=== PATIENT | male | born 1970 | race Caucasian/White ===

== ENCOUNTER → 2018-04-18 16:00 | Outpatient (CLI) | payer BC, SELFPAY ==
[2018-04-18 16:56] LABS: HCT 43.7 % (40.0-50.0); Mean Corp. HGB Concentration 34.3 g/dL (32.0-36.0); Mean Corpuscular Volume 84.5 fL (80-95); Mean Platelet Volume 10.8 fL (8.0-11.0); Platelet Count 239 x1000/uL (130-400); RBC 5.17 m/cumm (4.50-6.00); RBC Distribution Width 13.4 % (11.8-14.1); White Blood Cell Count 5.75 k/cumm (4.4-10.8)
[2018-04-18 17:58] LABS: TSH 1.23 uIU/mL (0.358-3.74)
[2018-04-22 13:53] LABS: Lyme Ab w Rflx to Lyme Confirm Negative
== END ==
PROVIDERS: PCP Family Medicine; Visit Provider Family Medicine
DX: R53.82 Chronic fatigue, unspecified (principal); W57.XXXA Bitten or stung by nonvenomous insect and other nonvenomous arthropods, initial encounter
CPT/HCPCS: 36415; 85027; 84443; 86618

== ENCOUNTER 2018-11-18 00:09 | Outpatient (CLI) | payer BC, SELFPAY ==
--- NOTE | 2018-11-18 05:47 | MERGEMPI_ITS ---
*[facility]* [address] [place] [address] Myocardial Perfusion Imaging - SPECT Raj protocol Date of study: 11/18/2018 *PATIENT PRESENTATION* Height: 185.4cm (73in) Blood Pressure: Weight: 104.5kg (230lb) BSA: 2.34m^2 Referring physician: Lucas Manriquez MD Ordering physician: Maurizio York Impressions: Normal perfusion by Tc99m Sestamibi Imaging. Summary: 1. Myocardial perfusion imaging: No myocardial perfusion defects noted. 2. The calculated left ventricular ejection fraction after stress: 51%. 3. Stress: The target heart rate was achieved. Indication: R07.9. History: Patient's presenting symptoms: . REASON FOR VISIT: PATIENT HAS BEEN FEELING ANXIOUS AND HAVING 2/10, DULL, LEFT SIDED CHEST PAIN FOR ABOUT SIX MONTHS. CHEST PAIN IS FAIRLY CONSTANT. PATIENT REPORTS NO PAIN WHEN GOING TO BED FOR THE NIGHT AND UPON WAKING, BUT PAIN RETURNS HIS DAY GETS GOING. PAST MEDICAL HISTORY: HYPERTENSION. GERD. FAMILY HISTORY: GRANDFATHER (DIABETES, HEART DISEASE, STROKE). SMOKING STATUS: NONE. EXERCISE ROUTINE: NONE. Risk factors: Family history of coronary artery disease. Hypertension. Cholesterol: 169mg/dl. HDL: 43mg/dl. LDL: 116mg/dl. Triglycerides: 42mg/dl. ALLERGIES: SULFONAMIDE ANTIBIOTICS, LACTOSE, ACETAMINOPHEN, OXYCODONE HCL, PROPOXYPHENE. MEDICATIONS: AMLODIPINE 10MG, DAILY. LISINOPRIL 30MG, DAILY. RANITIDINE HCL 75MG, DAILY. SERTRALINE 150MG, DAILY. Imaging Technique: Protocol: Raj protocol. Acquisition: Gated SPECT; 1 day - rest/stress. The patient was imaged in the supine position. Attenuation correction used. Isotope administration: - Rest. Tc[99m]-sestamibi. Dose: 12.1mCi. Injection time: 08:55 AM. Injection to stress time: 00:45. - Stress. Tc[99m]-sestamibi. Dose: 36.1mCi. Injection time: 11:00 AM. 1-2 min before end of exercise Stress protocol: + +---+ + !Stage !HR !BP (mmHg) ! + +---+ + !Baseline supine !58 !130/90 (103) ! + +---+ + !Baseline standing !55 !142/100 (114)! + +---+ + !Stage I; 1.7mph, 10degrees; 3 min !82 !140/90 (107) ! + +---+ + !Stage II; 2.5mph, 12degrees; 3 min !100!160/90 (113) ! + +---+ + !Stage III; 3.4mph, 14degrees; 3 min!120!180/98 (125) ! + +---+ + !Stage IV; 4.2mph, 16degrees; 3 min !156!220/100 (140)! + +---+ + !Recovery; 1 min !140!240/98 (145) ! + +---+ + !Recovery; 3 min !78 !160/84 (109) ! + +---+ + !Recovery; 6 min !81 !144/88 (107) ! + +---+ + * Stress results: Maximal heart rate during stress was 167bpm (96% of maximal predicted heart rate). The maximal predicted heart rate was 174bpm. The target heart rate was achieved. The rate-pressure product for the peak heart rate and blood pressure was 58014dn Hg/min. Stress ECG: TREADMILL PORTION OF MPI STRESS TEST ENDED IN 13MIN 6SEC DUE TO PATIENT FATIGUE. APPROPRIATE HEART RATE AND BLOOD PRESSURE RESPONSE TO EXERCISE. MAXIMAL HEART RATE ACHIEVED 167 BPM, 95% OF TARGET. APPROXIMATE METS ACHIEVED 14.23. PAC NOTED IN RECOVERY PERIOD. NO ANGINA. PATIENT REPORTS THAT CHEST PAIN STOPS DURING EXERICSE. NO SIGNIFICANT ST SEGMENT CHANGES. ABOVE AVERAGE FUNCTIONAL CAPACITY. Myocardial perfusion: Imaging information: gated. No myocardial perfusion defects noted. Ventricular Function (Wall Motion): The calculated left ventricular ejection fraction after stress: 51%. Study data: Lucas Manriquez MD supervised and was readily available during the procedure. This study was interpreted by [facility]. Study status: Routine. Consent: The risks, benefits, and alternatives to the procedure were explained to the patient and informed consent was obtained. Procedure: Initial setup. A baseline ECG was recorded. Surface ECG leads and manual cuff blood pressure measurements were monitored. Heart sounds: Normal. Lung sounds: Normal. Treadmill exercise testing was performed using the Raj protocol. Study completion: All catheters inserted during the procedure were removed. The patient tolerated the procedure well and was discharged from the lab. Discharge: The patient left the laboratory in stable condition. Birthdate: Patient birthdate: 1970. Sex: Gender: male. Study date: Study date: 11/18/2018. Study time: 00:01 AM. Electronically signed by Lucas Manriquez MD 11/18/2018 16:50
== END 2018-11-18 00:29 ==
PROVIDERS: PCP Family Medicine; Visit Provider Family Medicine
DX: R07.89 Other chest pain (principal); I10 Essential (primary) hypertension; K21.9 Gastro-esophageal reflux disease without esophagitis; F41.9 Anxiety disorder, unspecified; Z82.49 Family history of ischemic heart disease and other diseases of the circulatory system
CPT/HCPCS: 78452; 93017

== ENCOUNTER 2019-05-07 06:14 | Emergency (ER) | payer BC, SELFPAY ==
[2019-05-07 06:17] VITALS: BP 171/96; PULSE 81; RESP 18; TEMP 36.1; O2SAT 100
--- NOTE | 2019-05-07 06:30 | ED.GENADUL_ITS ---
Discharge Plan Disposition Patient Disposition: HOME Condition: Stable Discharge Details Chief Complaint: Nk/Back Pain Clinical Impression: Pain of left sacroiliac joint Primary Care Provider: Maurizio York ED Provider: Nic Balderas Home Meds and New Rx's Prescriptions: New methocarbamol 500 mg tablet 500 - 1,000 mg PO Q6H PRN (Reason: Back pain or spasm) Qty: 20 RF: 0 prednisone 20 mg tablet 40 mg PO DAILY 5 Days Qty: 10 RF: 0 hydromorphone [Dilaudid] 2 mg tablet 2 mg PO Q6H PRN (Reason: pain) Qty: 5 RF: 0 Continued amlodipine 10 mg tablet 10 mg PO DAILY Qty: 90 RF: 4 acetaminophen [Tylenol Extra Strength] 500 MG tablet 1 tab PO PRN RF: 0 ranitidine HCl [Zantac 75] 75 MG tablet 75 mg PO DAILY 90 Days Qty: 90 RF: 3 ibuprofen 800 mg tablet 800 mg PO TID PRN (Reason: pain) Qty: 30 RF: 3 lisinopril 30 mg tablet 30 mg PO DAILY Qty: 90 RF: 4 Discharge Instructions Instructions: Leg Pain (ED) Additional Instructions: Home to rest today. Small, frequent sips of fluids so that she maintain hydration. May perform gentle hip flexion and rotation stretching exercises as we discussed. Remove Lidoderm patch in 12 hours time, may repeat with [id number] Lidoderm patches 12 hours on 12 hours off. Take medications as prescribed. Return if develop increasing pain, weakness or numbness of the lower extremity, change to ability to urinate, or any other acute concerns. Please follow-up with Dr. York in the next 5 to 7 days for recheck. Stand Alone Forms: Work Release Medical Decision Making 48-year-old male presents from home with 2 days of left low back pain that began with a twisting motion while getting out of his truck. He did not suffer any other injury. He does not have a rash or tenderness at the sciatic notch. His motor and sensory testing is within normal limits. He has known hypertension and slightly hypertensive today. Consistent with SI joint strain, paraspinous muscular strain, cannot exclude slight disc bulge although it would be sacral. Lidoderm patch placed, will place him on a burst of prednisone for its anti- inflammatory properties, will add methocarbamol for muscle relaxation and discussed with him consent for use of the small number of narcotic analgesics. He is stable for outpatient management at this time and understands follow-up and return precautions. HPI General Mode of arrival: ambulatory . Date/Time Provider Initiated Documentation: 05/07/19 06:15 . Limitations to Documentation: no limitations . Information obtained by: patient . History of Present Illness 48 year old M presents to the emergency department with the chief complaint of Left low back pain for 2 days, described as moderate and severe, Quality is described as dull and constant, and is localized to the back and left. Patient reports no radiation. Patient started experiencing this day(s) and it has been intermittent. Rest improves symptom(s), Movement worsens symptoms . Patient notes no other symptoms. and other (No change to urine. No numbness or tingling.); denies weakness. Patient did receive the following treatments prior to arrival, NSAID Related Data Home Medications Medication Instructions Recorded Confirmed acetaminophen [Tylenol Extra 1 tab PO PRN 12/12/12 05/07/19 Strength] ranitidine HCl [Zantac 75] 75 mg PO DAILY 90 Days #90 tab-cap 12/12/17 05/07/19 ibuprofen 800 mg tablet 800 mg PO TID PRN #30 tab-cap 08/02/18 05/07/19 amlodipine 10 mg tablet 10 mg PO DAILY #90 tab 09/24/18 05/07/19 lisinopril 30 mg tablet 30 mg PO DAILY #90 tab 11/11/18 05/07/19 hydromorphone [Dilaudid] 2 mg PO Q6H PRN #5 tab 05/07/19 methocarbamol 500 - 1,000 mg PO Q6H PRN #20 tab 05/07/19 prednisone 40 mg PO DAILY 5 Days #10 tab 05/07/19 Previous Rx's Medication Instructions Recorded ranitidine HCl [Zantac 75] 75 mg PO DAILY 90 Days #90 tab-cap 12/12/17 ibuprofen 800 mg tablet 800 mg PO TID PRN #30 tab-cap 08/02/18 amlodipine 10 mg tablet 10 mg PO DAILY #90 tab 09/24/18 lisinopril 30 mg tablet 30 mg PO DAILY #90 tab 11/11/18 hydromorphone [Dilaudid] 2 mg PO Q6H PRN #5 tab 05/07/19 methocarbamol 500 - 1,000 mg PO Q6H PRN #20 tab 05/07/19 prednisone 40 mg PO DAILY 5 Days #10 tab 05/07/19 Allergies Allergy/AdvReac Type Severity Reaction Status Date / Time Sulfa (Sulfonamide Allergy Unknown Verified 05/07/19 06:19 Antibiotics) lactose AdvReac Severe DIARRHEA Verified 05/07/19 06:19 acetaminophen [From Percocet] AdvReac Intermediate ITCHY Verified 05/07/19 06:19 oxycodone HCl [From Percocet] AdvReac Intermediate ITCHY Verified 05/07/19 06:19 propoxyphene AdvReac Intermediate ITCHY Verified 05/07/19 06:19 General Stated Complaint: Nk/Back Pain NICHOLAS: 3 Review of Systems Review of Systems No numbness or tingling, no change to urine, no fall or injury. No rash. 6 systems reviewed and otherwise negative. [facility] Family History Mother Heart disease Father No problems noted. Sister No problems noted. Grandfather Diabetes Heart disease Stroke Son No problems noted. Daughter No problems noted. Daughter No problems noted. Daughter No problems noted. Social History Smoking/Tobacco Use Status: Never Alcohol Intake: current Alcohol Intake frequency: a few times a month Drug use: Rarely Substance use type: marijuana current occupation: [employer] Pets and animals: Yes Pets and animals: dog(s) Frequency: 5-6 times per week Special jose needs: No Do you feel safe at home: Yes Exam Narrative Exam Narrative: GEN: awake, alert, oriented 3. Pleasant, well groomed, interactive. HEAD: Normocephalic, atraumatic ENT: Mucous membranes moist, oropharynx unremarkable, External ear exam unremarkable EYES: PERRL, EOMI NECK: Full ROM, no ADDY, no menigismus CHEST/RESP: Nontender, clear to auscultation bilateral, no wheeze/rhonchi/rales CARDIOVASCULAR: RRR, no murmur, rub salvador. 2+ Rad pulse bilateral ABDOMEN: Soft, nontender, no mass. +Bowel sounds Back: Left SI joint/paraspinous sacral tenderness to palpation. no midline step- off, tenderness or deformity. EXT: Full ROM, no edema, no rash. 2+ patellar reflex bilaterally. Normal sensation throughout including saddle distribution. 5 out of 5 strength in bilateral lower extremity. Neuro: Grossly normal neurologic exam, conversant, interactive. Psych: Speech fluent, thoughts congruent, affect normal Course Vital Signs Temperature 36.1 C L 05/07/19 06:17 Pulse 81 05/07/19 06:17 Respiratory Rate 18 05/07/19 06:17 Blood Pressure 171/96 H 05/07/19 06:17 Pulse Oximetry 100 05/07/19 06:17 Temperature 36.1 C L 05/07/19 06:17 Temperature Source Skin 05/07/19 06:17 Pulse 81 05/07/19 06:17 Respiratory Rate 18 05/07/19 06:17 Respiratory Effort 05/07/19 06:20 Blood Pressure 171/96 H 05/07/19 06:17 Blood Pressure Position Standing 05/07/19 06:17 Pulse Oximetry 100 05/07/19 06:17 Oxygen Delivery Method Room Air 05/07/19 06:17 Oxygen Flow Rate 0 05/07/19 06:17 Pain Level 10 05/07/19 06:17
[2019-05-07] MEDS: predniSONE 40 MG, predniSONE 10 MG 50 MG PO (06:38)
== END 2019-05-07 06:43 | disposition home or self-care (01) ==
PROVIDERS: Emergency Provider Emergency Medicine; PCP Family Medicine
DX: M54.32 Sciatica, left side (principal); I10 Essential (primary) hypertension
CPT/HCPCS: 99283; J7512

== ENCOUNTER 2020-01-16 04:06 | Outpatient (CLI) | payer BC, SELFPAY ==
[2020-01-16 08:48] LABS: Anion Gap 6.8 mmol/L (3-11); BUN 21 mg/dL (7-18); CO2 30.2 mmol/L (21.0-32.0); CREATININE 0.94 mg/dL (0.70-1.30); Calcium 9.1 mg/dL (8.5-10.1); Calculated LDL 180 mg/dL (<100); Chloride 104 mmol/L (98-107); Cholesterol 240 mg/dL (<200); Glucose 96 mg/dL (74-106); HDL Cholesterol 47 mg/dL (40-60); Potassium 4.1 mmol/L (3.5-5.1); Sodium 141 mmol/L (136-145); Triglyceride 67 mg/dL (<150)
== END 2020-01-16 04:26 ==
PROVIDERS: PCP Family Medicine; Visit Provider Family Medicine
DX: Z00.00 Encounter for general adult medical examination without abnormal findings (principal); Z13.220 Encounter for screening for lipoid disorders; Z13.228 Encounter for screening for other metabolic disorders
CPT/HCPCS: 36415; 80048; 80061

== ENCOUNTER 2021-03-25 01:32 | Outpatient (CLI) | payer BC, SELFPAY ==
[2021-03-25 12:37] LABS: Hemoglobin A1C 5.7 % (<5.7)
[2021-03-25 12:40] LABS: ALT 20 U/L (16-63); AST 19 U/L (15-37); Albumin 4.2 g/dL (3.4-5.0); Alkaline Phosphatase 68 U/L (46-116); Anion Gap 8.4 mmol/L (3-11); BUN 19 mg/dL (7-18); Bilirubin, Total 0.5 mg/dL (0.2-1.0); CO2 29.6 mmol/L (21.0-32.0); CREATININE 0.9 mg/dL (0.70-1.30); Calcium 9.4 mg/dL (8.5-10.1); Calculated LDL 165 mg/dL (<100); Chloride 106 mmol/L (98-107); Cholesterol 227 mg/dL (<200); Glucose 90 mg/dL (74-106); HDL Cholesterol 50 mg/dL (40-60); Potassium 4.2 mmol/L (3.5-5.1); Sodium 144 mmol/L (136-145); Triglyceride 60 mg/dL (<150)
[2021-03-25 18:33] LABS: PSA, Screening 0.5 ng/mL (0.0-2.5)
== END 2021-03-25 01:33 | disposition home or self-care (01) ==
LOC: LOS 01:32
PROVIDERS: PCP Nurse Practitioner Family; Visit Provider Nurse Practitioner Family
DX: I10 Essential (primary) hypertension (principal); Z13.1 Encounter for screening for diabetes mellitus; Z13.220 Encounter for screening for lipoid disorders; Z12.5 Encounter for screening for malignant neoplasm of prostate
CPT/HCPCS: 36415; 80053; 80061; 84153; 83036

== ENCOUNTER 2021-06-15 02:04 | Outpatient (CLI) | payer BC, SELFPAY ==
[2021-06-15 11:20] LABS: Source Nasal/Nares
[2021-06-15 13:53] LABS: COVID-19 PCR Negative (Negative)
== END 2021-06-15 02:05 | disposition home or self-care (01) ==
LOC: LBO 02:05
PROVIDERS: PCP Nurse Practitioner Family; Visit Provider Surgery
DX: Z20.822 Contact with and (suspected) exposure to COVID-19 (principal); Z01.818 Encounter for other preprocedural examination
CPT/HCPCS: 87635

== ENCOUNTER 2021-06-17 06:03 | Day surgery (SDC) | payer BC, SELFPAY ==
--- NOTE | 2021-06-16 12:38 | W.COLOREPORT ---
Colonoscopy Report Date of procedure: 06/17/21 Pre-op diagnosis general: CRC screen Post-op diagnosis procedure note: other (minor divertic) Surgeon: Latisha Aponte Anesthesia Type: General:No Airway Estimated blood loss (mL): 0 Pathology: none sent Complications: None Disposition: same day Prep: Miralax/Dulcolax Retraction Time: 10 Procedure Description: After informed consent was obtained the patient was taken to the procedure room and placed in a left decubitous position. Monitors were applied and a time out was done. The patients name, date of , procedure, allergies to medications and metal in their body was reviewed. The patient was then sedated. Once sedated and comfortable a rectal exam was done. External exam was normal. Internal exam revealed a normal sphincter tone and no palpable masses. The scope was then introduced and retrofelexed. No internal hemorrhoids were identified. The scope was then advanced to the cecum without difficulty. The TI and appendiceal orifice were identified. The prep was adequate. stool coated the rowe of the colon. This was lavaged. Lesions less than 5 mm may have been missed. The scope was then slowly retracted over 10 minutes back into the rectum. There are no polyps or AVMs noted. He has 1 or 2 small diverticula confined to the sigmoid colon. There is no signs of active bleeding or infection. The scope was removed and the patient was woken up and taken back to Same day surgery in stable condition. The patient tolerated the procedure well and there were no immediate complications. Follow up: The patient should follow up in 10 years unless they develop changes in bowel habits or other new gastrointestinal complaints.
--- NOTE | 2021-06-16 12:40 | PDOC.DSDIS_ITS ---
Discharge Plan Disposition Patient Disposition: HOME Condition: Good Discharge Details Reason For Visit: stomach and colon scope Attending Provider: Latisha Aponte Primary Care Provider: Michael Kelsey Home Meds and New Rx's Prescriptions: New sucralfate [Carafate] 1 gram tablet 1 g PO BID Qty: 60 RF: 6 Continued acetaminophen [Tylenol Extra Strength] 500 MG tablet 1 tab PO PRN RF: 0 amlodipine 10 mg tablet 10 mg PO DAILY Qty: 90 RF: 4 lisinopril 30 mg tablet 30 mg PO DAILY Qty: 90 RF: 4 sertraline 50 mg tablet 50 mg PO DAILY Qty: 90 RF: 4 esomeprazole magnesium [Nexium] 40 mg Capsule,Delayed Release(Dr/Ec) 40 mg PO DAILY RF: 0 Discontinued ibuprofen 800 mg tablet 800 mg PO TID PRN (Reason: pain) Qty: 90 RF: 3 polyethylene glycol 3350 17 gram/dose powder 238 g PO ONCE Qty: 238 RF: 0 bisacodyl [Dulcolax (bisacodyl)] 5 mg tablet,delayed release (DR/EC) 5 mg PO ONCE Qty: 4 RF: 0 Discharge Instructions Additional Instructions: DSU Colonoscopy Post- Op Instructions Instructions for Everyone who is given Anesthesia: For your safety, please do the following for the next twenty-four (24) hours: *Do Not operate a motor vehicle (car, truck, motorcycle, etc.) *Do Not drink alcoholic beverages or use any recreational drugs for the first 24 hours or while taking pain medications. The medications in your body may have a reaction that can be dangerous. *Do Not make any important decisions or sign any important papers. Findings: -Continue with lifestyle modifications: no alcohol, tobacco products, Aspirin or NSAID's (ibuprofen, Motrin, Naprosyn, aleve, etc), soda pop/any carbonated beverages, caffeine (including tea & chocolate), and acidic foods, (tomatoes, citrus, onions, peppermints) spicy or fried/fatty foods. Do not lie down for 30 minutes after eating, and do not eat 2 hours prior to bedtime. Avoid wearing tight fitting clothing/ belts -If you need to take an ibuprofen for musculoskeletal pain, take the Carafate prior to taking the ibuprofen. -Make sure you are moving your bowels on a regular basis and not straining to go to the bathroom. Follow up: My office will send a letter in 2 to 3-week time detailing the results of the biopsies. Plan on repeating the colonoscopy in 10 years time. 1. No lifting over 20 pounds or strenuous activity for the first 24 hours after your procedure. After 24 hours there are no restrictions on your activity but you may feel fatigued for a few days. 2. After you arrive home you may have a light meal and return to your normal diet as you can tolerate it without feeling sick to your stomach. 3. You may have a bloated, gaseous feeling in your belly (abdomen) after a colonoscopy. Passing gas and belching will help. Walking or lying down on your left side with your knees flexed may relieve the discomfort. Call the office at [phone] (Office) or [phone] (Hospital) right away if you notice any of the following: a.Vomiting of blood or ?coffee ground stools?. b.Rectal bleeding 1Tbsp, blood clots or continuous bleeding. c.Severe belly (abdominal) pain. d.A hard distended belly (abdomen) and an inability to pass gas. 4. Please don?t expect to have a normal BM (bowel movement) for 2-3 days after your procedure. 5. If there are questions regarding the findings of your procedure, please contact your doctor 6. If you are unable to contact your doctor with a problem, contact the hospital at [phone]. 7. Continue all your regular medications unless directed otherwise. I understand the above instructions and have no questions. Signature of Patient or Adult Escort Name of Responsible Adult Escort Signature of Nurse Date/Time Activity:: see above Diet:: see abvoe Discharge Orders Discharge Orders: Discharge Order (Routine); Ordered 06/16/21 Ordered By: Latisha Aponte DS: Diagnosis Discharge Diagnosis (1) Gastroesophageal reflux disease: Status: Chronic (2) Hiatal hernia with GERD: Status: Acute (3) Diverticula of colon: Status: Acute
[2021-06-17 06:23] VITALS: BP 141/94; PULSE 77; RESP 16; TEMP 36.4; O2SAT 96
[2021-06-17] MEDS: Lactated Ringers 1,000 ML 80 ML IV (06:49)
--- NOTE | 2021-06-17 07:18 | W.ANESPRE ---
General Info Date of Service Date Performed: 06/17/21 Height: 6 ft 1 in Weight: 100.9 kg Body Mass Index (BMI): 29.3 Surgical Procedure: Operation Date: 06/17/21 07:35 Proposed Procedures Side Surgeon p Colonoscopy/Gastroscopy Latisha Apotne, DO Meds Allergies and Home Medications Allergies Allergy/AdvReac Type Severity Reaction Status Date / Time Sulfa (Sulfonamide Allergy Intermediate Itchy Verified 06/17/21 06:32 Antibiotics) Rash lactose AdvReac Severe DIARRHEA Verified 06/17/21 06:32 oxycodone HCl [From Percocet] AdvReac Intermediate ITCHY Verified 06/17/21 06:32 propoxyphene AdvReac Intermediate ITCHY Verified 06/17/21 06:32 Home Medication Medication Instructions Recorded acetaminophen [Tylenol Extra 1 tab PO PRN 12/12/12 Strength] ibuprofen 800 mg tablet 800 mg PO TID PRN #90 tab-cap 03/18/20 amlodipine 10 mg tablet 10 mg PO DAILY #90 tab 09/15/20 lisinopril 30 mg tablet 30 mg PO DAILY #90 tab 09/15/20 sertraline 50 mg tablet 50 mg PO DAILY #90 tab 09/15/20 bisacodyl 5 mg tablet,delayed 5 mg PO ONCE #4 tab 05/20/21 release polyethylene glycol 3350 17 238 g PO ONCE #238 g 05/20/21 gram/dose oral powder esomeprazole magnesium [Nexium] 40 mg PO DAILY 06/17/21 Current Visit Medications: Current Medications Generic Name Dose Route Start Last Admin Trade Name Freq PRN Reason Stop Dose Admin Hyoscyamine Sulfate 0.125 mg 06/16/21 12:39 Hyoscyamine 0.125 Mg Sl/Oral/Chew SL DIRECTED PRN Ringer's Solution 1,000 mls @ 80 mls/hr 06/17/21 06:00 06/17/21 06:49 IV 07/16/21 23:59 80 mls/hr INFUSION XU Administration IV Miscellaneous Supplies 1 each 06/17/21 06:00 Iv Access IV 07/16/21 23:59 DIRECTED XU Ondansetron HCl 4 mg 06/16/21 12:39 Ondansetron 4 Mg/2 Ml Vial IVP Q4H PRN PRN Nausea / Vomiting Sodium Chloride 0 ml 06/17/21 06:00 Normal Saline Flush 10 Ml Syr IV 07/16/21 23:59 PRN PRN Sodium Chloride 0 ml 06/17/21 06:00 Normal Saline 10 Ml Vial IJ 07/16/21 23:59 DIRECTED PRN Sterile Water 0 ml 06/17/21 06:00 Water,Injection,Sterile 10 Ml Vial IJ 07/16/21 23:59 DIRECTED PRN PFSH Active Problems Active Problems: Problem Status Onset Code Anxiety 12/12/17 F41.9 Essential hypertension 06/30/13 I10 Gastroesophageal reflux disease 12/12/17 K21.9 Muscle cramps R25.2 COVID-19 long hauler manifesting chronic fatigue R53.82, B94.8 Foot pain M79.673 Multiple lipomas D17.9 Medical History Medical History COVID-19 12/22/20 GERD (gastroesophageal reflux disease) Hypertension Surgical History Surgical History H/O medial meniscus repair of right knee History of hernia repair S/P correction of deviated nasal septum Tobacco Smoking/Tobacco Use Status: Never Passive smoking exposure: Yes Second hand exposure: Yes Alcohol Alcohol Intake: never Substance Use Substance use: Socially Substance use type: marijuana Details: states smaoked marijuana last Sat 06.11.21 Vital Signs and Lab Results Vital Signs Most Recent Vital Signs in EMR: Most Recent Vital Signs Temp Pulse Resp BP Pulse Ox 36.4 C L 77 16 141/94 H 96 06/17/21 06:23 06/17/21 06:23 06/17/21 06:23 06/17/21 06:23 06/17/21 06:23 Lab Results Blood Type / Crossmatch: No Data to Display Complete Blood Count: No Data to Display Complete Metabolic Panel: No Data to Display Liver Function Panel: No Data to Display Coagulation Panel: No Data to Display Cardiac Panel: No Data to Display Arterial Blood Gas: No Data to Display Venous Blood Gas: No Data to Display Pancreas Panel: No Data to Display Thyroid Panel: No Data to Display Infectious Disease: Coronavirus (COVID-19)(PCR) Negative (Negative) 06/15/21 08:40 06/15/21 Coronavirus 2019 Source Nasal/Nares 06/15/21 08:40 06/15/21 Blood Cultures: No Data to Display Toxicology Panel: No Data to Display Imaging and Studies Imaging and Studies Stress Test Summary: Stress results: Maximal heart rate during stress was 167bpm (96% of maximal predicted heart rate). The maximal predicted heart rate was 174bpm. The target heart rate was achieved. The rate-pressure product for the peak heart rate and blood pressure was 78663lj Hg/min. Stress ECG: TREADMILL PORTION OF MPI STRESS TEST ENDED IN 13MIN 6SEC DUE TO PATIENT FATIGUE. APPROPRIATE HEART RATE AND BLOOD PRESSURE RESPONSE TO EXERCISE. MAXIMAL HEART RATE ACHIEVED 167 BPM, 95% OF TARGET. APPROXIMATE METS ACHIEVED 14.23. PAC NOTED IN RECOVERY PERIOD. NO ANGINA. PATIENT REPORTS THAT CHEST PAIN STOPS DURING EXERICSE. NO SIGNIFICANT ST SEGMENT CHANGES. ABOVE AVERAGE FUNCTIONAL CAPACITY. Myocardial perfusion: Imaging information: gated. No myocardial perfusion defects noted. Ventricular Function (Wall Motion): The calculated left ventricular ejection fraction after stress: 51%. 11/18/18 Anesthesia Assessment and Plan Anesthesia History Personal History: No History of Anesthesia Complications Family History: No Family History of Anesthesia Complications Exercise Tolerance Exercise Tolerance: Metabolic Equivalents>4 Pertinent Negatives Pertinent Negatives: No Major Cardiovascular Symptoms or Complaints, No Major Pulmonary Symptoms or Complaints and No History of CVA/TIA Cardiac & Pulmonary Exam Cardiac Exam: Normal S1/S2 Heart Sounds Pulmonary Exam: Clear Bilateral Breath Sounds Airway Exam Known Difficult Airway: No Mallampati Class: 1 Mouth Opening: Normal (> 3cm) Thyromental Distance: Greater than 3 cm Neck Range of Motion: Full ROM Neck Circumference: Normal Teeth Condition: Normal Dentition ASA Classification ASA Score: ASA 2 Emergency Case?: No NPO Status NPO Status: NPO Clears >2 hours, Solids >8 hours Anesthesia Plan Resuscitation Status: Full Code Anesthesia Technique: General Anesthesia Airway Planned: Natural Airway Monitors Used: Standard Monitors
[2021-06-17 07:26] VITALS: BMI 29.3
--- NOTE | 2021-06-17 07:39 | STOM_PTH ---
PATIENT: Randal Pearson LOC: [facility] U#:[id number] AGE/SX: 50/M ROOM: RE06/17/[address]: Latisha Aponte : 1970 BED: DIS: 06/17/2021 SPEC #: [id number] RECD: 06/17/21 12:22 STATUS: ART RE #: [id number] JAMES: 06/17/21 07:[address]: Latisha Aponte DEPT: Surgical Specimen RECD BY: Kathleen Pinto ENTERED: 06/17/21 12:26 SP TYPE: STOMACH OTHR DR: Michael Kelsey, SALES TEAM LEADER Tissues: 1 - BIOPSY BOWEL 2 - BIOPSY BOWEL 3 - STOMACH BIOPSY 4 - STOMACH BIOPSY 5 - ESOPHAGUS BIOPSY 6 - ESOPHAGUS BIOPSY Procedures: GROSS AND MICRO LEVEL 4 Comments: [id number]
[2021-06-17 08:08] VITALS: BP 147/83; PULSE 72; RESP 14; TEMP 36.3; O2SAT 97
--- NOTE | 2021-06-17 08:18 | W.PM.ENDDOP ---
Date of service: 06/17/21 Time of Service: 08:18 Endoscopy Report DATE OF PROCEDURE: 06/17/21 PRE-OP DIAGNOSIS: gerd POST-OP DIAGNOSIS: other (hiatal hernia ) SURGEON: Latisha Aponte ANESTHESIA TYPE: General:No Airway ESTIMATED BLOOD LOSS: 1 PATHOLOGY: other COMPLICATIONS: None DISPOSITION: same day PROCEDURE DESCRIPTION: After informed consent was obtained the patient was take to the procedure room and placed in a supine position. Monitors were applied and a time out was done. The patients name, date of , procedure type, allergies to medications and metal in their body was reviewed. A bite block was placed and the patient was sedated. Once sedated and comfortable the gastroscope was advanced through the oropharynx which was grossly normal into the esophagus. The proximal and mid-esophagus were nl. In the distal esophagus there was no esophageal erosions, varices, diverticula Noted. The scope was advanced into the stomach and through the pylorus into the 3rd portion of the duodenum. The duodenum was noted to be nl. Biopsies were done , all specimens are retrieved and no bleeding is noted. The scope was retracted back into the stomach and biopsies were done to rule out H. pylori. There were no ulcers. very mild gastritis at the antrum. The scope was retroflexed. The cardia and fundus were noted to be normal. There small, <2cm a hiatal hernia noted. The scope was retracted back into the esophagus and biopsies were done of the GE junction to rule out Carolina's. The Z line was regular. The scope was removed and the patient was woken up and taken back to [facility] in stable condition.
--- NOTE | 2021-06-17 08:32 | W.ANESPOSTOP ---
Postoperative Evaluation Date, Time and Location Date Performed: 06/17/21 Time Performed: 08:10 Patient Location: Day Surgery Unit Vital Signs Most Recent Imported Vital Signs: Most Recent Vital Signs Temp Pulse Resp BP Pulse Ox 36.3 C L 72 14 147/83 H 97 06/17/21 08:08 06/17/21 08:08 06/17/21 08:08 06/17/21 08:08 06/17/21 08:08 Pain Score Most Recent Pain Score: Most Recent Pain Score Pain Level 0 06/17/21 08:08 Assessment Mental Status: Awake (Alert & Oriented to Patient Baseline) Airway and Respiratory Function: Patent airway with normal (patient baseline) respiratory exam Cardiovascular Function: Hemodynamically Stable Hydration Status: Adequately Hydrated Nausea & Vomiting: No Nausea or Vomiting Pain: Pt. Denies Any Pain Peripheral Nerve Block: Patient did not receive a nerve block
[2021-06-17 08:40] VITALS: BP 146/99; PULSE 60; RESP 16; TEMP 36.4; O2SAT 100
== END 2021-06-17 09:14 | disposition home or self-care (01) ==
PROVIDERS: PCP Nurse Practitioner Family; Visit Provider Surgery
PROC: (CPT 43239; principal; 2021-06-17 07:30)
DX: K21.00 Gastro-esophageal reflux disease with esophagitis, without bleeding (principal); Z12.11 Encounter for screening for malignant neoplasm of colon; K44.9 Diaphragmatic hernia without obstruction or gangrene; K57.30 Diverticulosis of large intestine without perforation or abscess without bleeding
CPT/HCPCS: 43239; 45378; 88305; J2001

== ENCOUNTER 2023-08-07 12:53 | Outpatient (CLI) | payer BC, SELFPAY ==
[2023-08-07 13:09] LABS: CREATININE 1.1 mg/dL (0.70-1.30); Calculated LDL 175 mg/dL (<100); Cholesterol 250 mg/dL (<200); Estimated GFR 81.28 (mL/min/1.73m2); HDL Cholesterol 51 mg/dL (40-60); Potassium 3.3 mmol/L (3.5-5.1); Triglyceride 122 mg/dL (<150)
== END 2023-08-07 12:54 | disposition home or self-care (01) ==
LOC: LOS 12:54
PROVIDERS: PCP Nurse Practitioner Family; Visit Provider Nurse Practitioner Family
DX: I10 Essential (primary) hypertension (principal); Z13.220 Encounter for screening for lipoid disorders
CPT/HCPCS: 36415; 80061; 82565; 84132

== ENCOUNTER → 2023-08-24 01:23 | Outpatient (CLI) | payer BC, SELFPAY ==
--- NOTE | 2023-08-24 10:42 | DI.RAD_ITS ---
Exam(s) XR ELBOW RT COMPLETE EXAM: XR ELBOW RT COMPLETE CLINICAL HISTORY: Chronic elbow pain. Hx bone spur, M25.521. TECHNIQUE: 2D digital imaging was performed. Three views. COMPARISON: CR RIGHT ELBOW COMPLETE from 09/01/2014 FINDINGS: BONES: No acute fracture is present. No bony destructive lesion is seen. There is an enthesophyte at the triceps insertion, larger than on prior. There is spurring at the coronoid process of the ulna. JOINTS: The elbow is normally aligned. No joint effusion is seen. The joint spaces are maintained. SOFT TISSUE: Normal. No joint space or tendon calcifications are seen. IMPRESSION: Periarticular spurring and ulnar enthesophyte. DATA REPOSITORY: RADIATION DOSE DELIVERED:
== END ==
PROVIDERS: PCP Nurse Practitioner Family; Visit Provider Nurse Practitioner Family
DX: M77.8 Other enthesopathies, not elsewhere classified (principal)
CPT/HCPCS: 73080

== ENCOUNTER 2024-11-07 00:15 | Outpatient (CLI) | payer BC, SELFPAY ==
--- NOTE | 2024-11-07 06:45 | DI.MRI_ITS ---
Exam(s) MR UPPER JOINT LT WO EXAM: MR UPPER JOINT LT WO CLINICAL HISTORY: Failed months of PT,? ROTATOR CUFF TEAR,INJURY,LT SHOULDER PAIN,,S46.009A. TECHNIQUE: Multiplanar multisequence MRI was performed. COMPARISON: No exams were available for comparison FINDINGS: BONES: There is no fracture or contusion pattern. There is mild edema seen in the greater tuberosity. JOINTS: Xhts-dv-[id number] degenerative changes are seen at the acromioclavicular joint. Mild degenera tive changes are also seen at the glenohumeral joint. TENDONS: Supraspinatus: There is hyperintense signal on the coronal T2 images which appears represent a partia l tear of the supraspinatus at the insertion site. There is underlying marrow edema in the greater t uberosity. There is tendinosis of the supraspinatus. Infraspinatus: Unremarkable. Subscapularis: There is tendinosis of the subscapularis. Teres Minor: Unremarkable. Biceps and Parker: Unremarkable. MUSCLES: Unremarkable. GLENOID LABRUM: There is degeneration seen in the posterior superior labrum. The remainder of the la chucho is unremarkable. SOFT TISSUES: Unremarkable. LIGAMENTS: Unremarkable. OTHER: There is a small amount of fluid in the subacromial bursa. IMPRESSION: 1. Findings suspicious for partial articular surface tear of the supraspinatus tendon. 2. Tendinosis of the subscapularis and supraspinatus. 3. Mild degenerative changes seen at the acromioclavicular and glenohumeral joints. 4. Small amount of fluid seen in the subacromial subdeltoid bursa. DATA REPOSITORY:
== END 2024-11-07 00:35 ==
LOC: DI 00:15
PROVIDERS: PCP Nurse Practitioner Family; Visit Provider Nurse Practitioner Family
DX: M75.32 Calcific tendinitis of left shoulder (principal); S46.002D Unspecified injury of muscle(s) and tendon(s) of the rotator cuff of left shoulder, subsequent encounter; X58.XXXD Exposure to other specified factors, subsequent encounter
CPT/HCPCS: 73221

== ENCOUNTER 2024-11-07 09:11 | Outpatient (CLI) | payer BC, SELFPAY ==
[2024-11-07 09:51] LABS: Hemoglobin A1C 5.7 % (<5.7)
[2024-11-07 09:53] LABS: CREATININE 1.1 mg/dL (0.70-1.30); Calculated LDL 167 mg/dL (<100); Cholesterol 240 mg/dL (<200); Estimated GFR 80.77 (mL/min/1.73m2); HDL Cholesterol 63 mg/dL (>or=40); Potassium 3.9 mmol/L (3.5-5.1); Triglyceride 53 mg/dL (<150)
[2024-11-07 19:33] LABS: PSA, Screening 0.5 ng/mL (<=3.5)
== END 2024-11-07 09:12 | disposition home or self-care (01) ==
LOC: LBO 09:12
PROVIDERS: PCP Nurse Practitioner Family; Visit Provider Nurse Practitioner Family
DX: I10 Essential (primary) hypertension (principal); Z13.220 Encounter for screening for lipoid disorders; Z13.1 Encounter for screening for diabetes mellitus; Z12.5 Encounter for screening for malignant neoplasm of prostate
CPT/HCPCS: 36415; 80061; 84153; 82565; 83036; 84132

== ENCOUNTER 2024-11-19 16:01 | Outpatient (CLI) | payer BC, SELFPAY ==
--- NOTE | 2024-11-19 10:59 | DI.RAD_ITS ---
Exam(s) XR SHOULDER LT COMPLETE 2+V EXAM: XR SHOULDER LT COMPLETE 2+V CLINICAL HISTORY: LEFT SHOULDER PAIN. TECHNIQUE: 2D digital imaging was performed. COMPARISON: MR MR UPPER JOINT LT WO from 11/07/2024 FINDINGS: 3 views No evidence of fracture or dislocation of the glenohumeral joint. Mild degenerative changes in the g lenohumeral joint. Some degenerative changes also evident in the AC joint. There is a soft tissue calcification measuring 6 x 3 mm situated in the space between the lateral 3rd of the clavicle and the coracoid process of the scapula. This is probably related to the coracoclav icular ligament. IMPRESSION: There is a 6 x 3 mm calcification in the space between the lateral 3rd of the clavicle and the coraco id process of the scapula, closer to the inferior clavicular surface than the coracoid process. May represent calcification related to the coracoclavicular ligament. DATA REPOSITORY: RADIATION DOSE DELIVERED:
== END 2024-11-19 16:02 | disposition home or self-care (01) ==
LOC: DIORS 16:02
PROVIDERS: PCP Nurse Practitioner Family; Visit Provider Student in an Organized Health Care Education/Training Program
DX: M25.512 Pain in left shoulder (principal)
CPT/HCPCS: 73030

== ENCOUNTER → 2025-07-28 00:25 | Outpatient (CLI) | payer BC, SELFPAY ==
--- NOTE | 2025-07-28 06:59 | DI.RAD_ITS ---
Exam(s) XR CHEST 2V PA LATERAL EXAM: XR CHEST 2V PA LATERAL CLINICAL HISTORY: Left lung/worsening,RHONCHI,R09.89 TECHNIQUE: 2D digital imaging was performed of the chest. Two images were obtained. PA and lateral views were obtained. COMPARISON: CR ABD FLAT UPRIGHT PA CHEST from 06/13/2012 FINDINGS: MEDIASTINUM: Normal. HEART: Normal. PULMONARY VASCULATURE: Normal. LUNGS: Clear. PLEURAL SPACE: No pleural effusion or pneumothorax. BONE:Within normal limits for the patient's age. OTHER FINDINGS:Normal. IMPRESSION: No acute pulmonary findings. DATA REPOSITORY: RADIATION DOSE DELIVERED:
== END ==
LOC: DI 00:25
PROVIDERS: PCP Nurse Practitioner Family; Visit Provider Nurse Practitioner Family
DX: R09.89 Other specified symptoms and signs involving the circulatory and respiratory systems (principal)
CPT/HCPCS: 71046

== ENCOUNTER 2025-08-04 12:23 | Outpatient (CLI) | payer BC, SELFPAY ==
[2025-08-04 11:41] LABS: Abs Immature Grans 0.01 10^3/uL (0.0-0.06); HCT 47.4 % (40.0-50.0); HGB 15.6 g/dL (13.5-17.5); Immature Grans % 0.2 %; MCH 28.1 pg (27.0-33.0); MCHC 32.9 % (32.0-36.0); MCV 85 fL (80-95); MPV 10.4 fL (8.0-11.0); Platelet Count 263 10^3/uL (130-400); RBC 5.56 10^6/uL (4.36-5.78); RDW 13.0 % (11.8-14.1); RDW-SD 40.9 fL; WBC 5.40 10^3/uL (4.4-10.8)
[2025-08-04 12:32] LABS: Iron 73 ug/dL (65-175); Total Iron Binding Capacity 340 ug/dL (250-425)
[2025-08-04 12:35] LABS: Ferritin 143 ng/mL (11-307); TSH (W/Ref FT4) 1.76 uIU/mL (0.55-4.78)
[2025-08-04 12:36] LABS: Vitamin B12 390 pg/mL (211-911)
[2025-08-04 14:40] LABS: Hemoglobin A1C 5.6 % (<5.7)
[2025-08-04 14:53] LABS: Anion Gap 6.2 mmol/L (3-11); BUN 18 mg/dL (9-23); CO2 32.8 mmol/L (20.0-31.0); Calcium 9.5 mg/dL (8.3-10.6); Chloride 104 mmol/L (98-107); Cholesterol 235 mg/dL (<200); Glucose 79 mg/dL (74-106); HDL Cholesterol 53 mg/dL (>40); Potassium 3.5 mmol/L (3.5-5.1); Sodium 143 mmol/L (136-145)
[2025-08-05 11:32] LABS: Transferrin 270 mg/dL (201-352)
== END 2025-08-04 12:24 | disposition home or self-care (01) ==
LOC: LBO 12:23
PROVIDERS: PCP Nurse Practitioner Family; Visit Provider Nurse Practitioner Family
DX: R23.1 Pallor (principal); R23.2 Flushing; Z13.1 Encounter for screening for diabetes mellitus; Z13.220 Encounter for screening for lipoid disorders; I10 Essential (primary) hypertension
CPT/HCPCS: 36415; 80048; 80061; 82607; 82728; 83036; 83540; 83550; 84443; 84466; 85025

== ENCOUNTER 2025-08-18 01:07 | Outpatient (CLI) | payer BC, SELFPAY ==
[2025-08-18] MEDS: Inhaler, Assist Device 1 EACH MC (09:29)
[2025-08-18] MEDS: Levalbuterol HFA 15 GM INH 4 PUFF IH (09:29)
--- NOTE | 2025-08-24 13:35 | W.PFT ---
Date of service: 08/18/25 Time of Service: 08:03 Pulmonary Function Test Result Indications: Wheezing, occupational exposure Impression 1. Good patient effort was noted. ATS standards for reproducibility were met. 2. Normal spirometry. 3. Following the administration of a bronchodilator there was not a significant response 4. TLC was normal. No evidence of restrictive lung disease 5. DLCO was normal indicating normal alveolar gas exchange
== END 2025-08-18 01:08 | disposition home or self-care (01) ==
LOC: RT 01:07
PROVIDERS: PCP Nurse Practitioner Family; Visit Provider Nurse Practitioner Family
DX: R06.89 Other abnormalities of breathing (principal); Z57.8 Occupational exposure to other risk factors; R06.2 Wheezing
CPT/HCPCS: 94060; 94726; 94729